=== PATIENT | female | born 1995 | race Two or more races ===

== ENCOUNTER 2020-10-09 19:05 | Emergency (ER) | payer OTHER ==
[~2020-10-09] VITALS: Ht 162.6 cm; Wt 58.3 kg
[2020-10-09 19:38] VITALS: BP 111/67
--- NOTE | 2020-10-09 19:41 | PHYS DOC ---
Adult General Chief Complaint Chief Complaint: ABDOMINAL PAIN HPI HPI Patient is a 25-year-old female patient with no significant medical history who presents to the ED today complaining of nausea with no vomiting as well as left lower quadrant abdominal pain rated as mild and intermittent, symptoms began a couple of weeks. She also states she is constipated. Denies anything specifically exacerbating or relieving her symptoms. Describes the pain on the left lower quadrant sharp. She is also stating she does not know if she is or not, her last menstrual cycle was the beginning of August. She is 10 days late. (LYNDON BERNARD APRN) Review of Systems Review of Systems Constitutional: Denies fever or chills [] Eyes: Denies change in visual acuity, redness, or eye pain [] HENT: Denies nasal congestion or sore throat [] Respiratory: Denies cough or shortness of breath [] Cardiovascular: No additional information not addressed in HPI [] GI: Reports left lower quadrant abdominal pain, nausea, denies vomiting, bloody stools or diarrhea [] : Denies dysuria or hematuria [] Musculoskeletal: Denies back pain or joint pain [] Integument: Denies rash or skin lesions [] Neurologic: Denies headache, focal weakness or sensory changes [] All other systems were reviewed and found to be within normal limits, except as documented in this note. (LYNDON BERNARD APRN) Allergies Allergies Allergies Coded Allergies Type Severity Reaction Last Updated Verified No Known Drug Allergies 10/09/20 No (LYNDON BERNARD APRN) Physical Exam Physical Exam Constitutional: Well developed, well nourished, no acute distress, non-toxic appearance. [] HENT: Normocephalic, atraumatic, bilateral external ears normal, oropharynx moist, no oral exudates, nose normal. [] Eyes: PERRLA, EOMI, conjunctiva normal, no discharge. [] Neck: Normal range of motion, no tenderness, supple, no stridor. [] Cardiovascular:Heart rate regular rhythm, no murmur [] Lungs & Thorax: Bilateral breath sounds clear to auscultation [] Abdomen: Bowel sounds normal, soft, no tenderness, no masses, no pulsatile masses. [] Skin: Warm, dry, no erythema, no rash. [] Back: No tenderness, no CVA tenderness. [] Extremities: No tenderness, no cyanosis, no clubbing, ROM intact, no edema. [] Neurologic: Alert and oriented X 3, normal motor function, normal sensory function, no focal deficits noted. [] Psychologic: Affect normal, judgement normal, mood normal. [] (LYNDON BERNARD APRN) EKG EKG [] (LYNDON BERNARD APRN) Radiology/Procedures Radiology/Procedures []PROCEDURE: ABDOMEN SUPINE & UPRIGHT Abdomen 2 views: Reason for examination: Abdominal pain and constipation. There is no gross organomegaly. Psoas muscles are symmetric. The bowel gas pattern is nonspecific with no apparent obstruction. There are calcifications in the left pelvis which probably represent phleboliths. No acute bony abnormality seen. IMPRESSION: Nonspecific nonobstructive bowel gas pattern. Electronically signed by: Elisabeth Larson MD (10/09/2020 9:11 PM) [facility] DICTATED AND SIGNED BY: ELISABETH LARSON MD DATE: 10/09/202108 CC: LYNDON BERNARD APRN; PCP,NO ~MTH0 0 (LYNDON BERNARD APRN) Heart Score Risk Factors: Risk Factors: DM, Current or recent (<one month) smoker, HTN, HLP, family history of CAD, obesity. Risk Scores: Risk Factors: DM, Current or recent (<one month) smoker, HTN, HLP, family history of CAD, obesity. (LYNDON BERNARD APRN) Course & Med Decision Making Course & Med Decision Making Pertinent Labs and Imaging studies reviewed. (See chart for details) This is a 25-year-old female patient presenting to the ED today complaining of left lower quadrant abdominal pain, nausea, symptoms for a couple weeks. Concerned she could be . She is also complaining of constipation. UA negative for any acute findings, negative urine hCG. Abdomen supine and upright x-rays are negative for any acute findings, significant constipation noted on the images as well as gas. Discharged with mag citrate. MiraLAX also recommended. We discussed about constipation management. (LYNDON BERNARD APRN) Dragon Disclaimer Dragon Disclaimer This electronic medical record was generated, in whole or in part, using a voice recognition dictation system. (LYNDON BERNARD APRN) Departure Departure: Impression: Primary Impression: Constipation Disposition: 01 DC HOME SELF CARE/HOMELESS Condition: STABLE Referrals: PCP,NO (PCP) follow up with your doctor in one week Patient Instructions: Constipation, Adult Additional Instructions: You were evaluated in the emergency room for abdominal pain and noted to be constipated. Please increase your dietary fiber intake as well as water intake. Take MiraLAX every day to prevent constipation. Take magnesium citrate anytime you are constipated. Scripts Polyethylene Glycol 3350 (MIRALAX) 17 Gm Powd.pack 1 PACKET PO DAILY for constipation for 2 Days, #2 PACKET 0 Refills dissolve in water Prov: LYNDON BERNARD APRN 10/09/20 Attending Signature Attending Signature I have participated in the care of this patient and I have reviewed and agree with all pertinent clinical information above including history, exam, and recommendations. (VALENTIN TUBBS MD) Dragon Disclaimer This chart was dictated in whole or in part using Voice Recognition software in a busy, high-work load, and often noisy Emergency Department environment. It may contain unintended and wholly unrecognized errors or omissions. (VALENTIN TUBBS MD) Problem Qualifiers Primary Impression: Constipation Constipation type: unspecified constipation type Qualified Codes: K59.00 - Constipation, unspecified LYNDON BERNARD APRN Oct 09, 2020 19:41 VALENTIN TUBBS MD Oct 10, 2020 19:40
[2020-10-09 20:05] LABS: BILIRUBIN,URINE NEG (NEG); CLARITY,URINE HAZY; COLOR,URINE YELLOW; GLUCOSE,URINE NEG (NEG); NITRITE,URINE NEG (NEG); RBC,URINE RARE /HPF (0-2); UROBILINOGEN,URINE 0.2 mg/dL (0.2 mg/dL); WBC,URINE RARE /HPF (0-4)
[2020-10-09 20:06] LABS: BACTERIA,URINE 0 /HPF (0-FEW); SQUAMOUS EPITHELIAL CELL,UR FEW /LPF
--- NOTE | 2020-10-09 21:14 | RAD ---
Abdomen 2 views: Reason for examination: Abdominal pain and constipation. There is no gross organomegaly. Psoas muscles are symmetric. The bowel gas pattern is nonspecific wit h no apparent obstruction. There are calcifications in the left pelvis which probably represent phleb oliths. No acute bony abnormality seen. IMPRESSION: Nonspecific nonobstructive bowel gas pattern. Electronically signed by: Elisabeth Evans MD (10/09/2020 9:11 PM) [facility]
[2020-10-09] MEDS ORDERED: POLY17PO5 PO (21:29)
== END 2020-10-09 21:35 | disposition home or self-care (01) ==
LOC: ER 19:05
DX: K59.00 Constipation, unspecified (principal)
CPT/HCPCS: 74019; 81001; 81025; 99284

== ENCOUNTER 2021-05-11 15:06 | Emergency (ER) | payer OTHER ==
[~2021-05-11] VITALS: Ht 160 cm; Wt 67.0 kg
[~2021-05-11 15:06] MED LIST: POLY17PO5 PO
[2021-05-11 15:39] VITALS: BP 130/76
--- NOTE | 2021-05-11 15:48 | PHYS DOC ---
Past History Past Medical History: No Pertinent History Past Surgical History: No Surgical History Alcohol Use: None General Adult EDM: Chief Complaint: VAGINAL PROBLEM HPI: HPI: Patient is a 26-year-old female who presents to the ER today for swelling noted inside the vagina. Patient reports that it started out as a purple discoloration to her labia 1 week ago and now she has swelling inside her vagina. Patient reports heavy lifting at work. She denies trauma, pain, vaginal discharge, itching, abdominal pain, fevers, urinary complaints. She has never had any children. She does not have CORRECTIONS CASEWORKER. Review of Systems: Review of Systems: 14 body systems of the review of systems have been reviewed. See HPI for pertinent positive and negative responses, otherwise all other systems are negative, nonpertinent or noncontributory Allergies: Allergies: Allergies Coded Allergies Type Severity Reaction Last Updated Verified No Known Drug Allergies 05/11/21 No Physical Exam: PE: Constitutional: Well developed, well nourished, no acute distress, non-toxic appearance. [] HENT: Normocephalic, atraumatic Eyes: PERRL, conjunctiva normal, no discharge. [] Neck: Normal range of motion, no stridor Cardiovascular:Heart rate regular rhythm, no murmur [] Lungs & Thorax: Bilateral breath sounds clear to auscultation [] Abdomen: Bowel sounds normal, soft, no tenderness, no masses, no pulsatile masses. [] Skin: Warm, dry, no erythema, no rash. [] Back: No tenderness, no CVA tenderness. [] Extremities: No tenderness, no cyanosis, no clubbing, ROM intact, no edema. [] Neurologic: Alert and oriented X 3, normal motor function, normal sensory funct ion, no focal deficits noted. [] Psychologic: Affect normal, judgement normal, mood normal. [] Supervisor Customer Records Division: Pelvic exam: Outer genitalia normal-appearing, patient had a small amount of white thin vaginal discharge. Patient had no erythema, lesions noted. No CMT tenderness, no adnexal tenderness. There is mild swelling noted to the top of the vaginal opening, this is the same region where patient noticed ecchymosis to. It is likely that patient had trauma to area and has a small amount of sw elling from that trauma. Patient has no concerns for STDs she is sexually active with her only. GC chlamydia and wet prep swabs obtained. Current Patient Data: Vital Signs: Vital Signs Date Time Temp Pulse Resp B/P (MAP) Pulse Ox O2 Delivery O2 Flow Rate FiO2 05/11/21 15:39 99.4 92 18 130/76 98 Room Air EKG: EKG: [] Radiology/Procedures: Radiology/Procedures: [] Heart Score: C/O Chest Pain: No Risk Factors: Risk Factors: DM, Current or recent (<one month) smoker, HTN, HLP, family history of CAD, obesity. Risk Scores: Score 0 - 3: 2.5% MACE over next 6 weeks - Discharge Home Score 4 - 6: 20.3% MACE over next 6 weeks - Admit for Clinical Observation Score 7 - 10: 72.7% MACE over next 6 weeks - Early Invasive Strategies Course & Med Decision Making: Course & Med Decision Making Pertinent Labs and Imaging studies reviewed. (See chart for details) Patient is a 26 old female being seen in the ER today for swelling noted inside her vagina. I performed a pelvic exam that was unremarkable, there is a small amount of swelling noted to the top of the vaginal opening where patient previously had ecchymosis. It is likely that patient had vaginal trauma that she is unaware of. Patient is sexually active with one partner with no concerns for STDs. Swabs were obtained for STI testing. A UA and test was performed in the ER. All testing in the ER was unremarkable. Patient has STI testing pending and will be notified of those results whenever they become available. I discussed with patient all findings and diagnostic testing as well as the need to follow-up with PCP for further evaluation and treatment or return to the ER if any new or worsening symptoms. Strict return precautions were also discussed at length. Patient voiced understanding and agreement with the plan. Patient is hemodynamically stable at the time of disposition. Dragon Disclaimer: Dragon Disclaimer: This electronic medical record was generated, in whole or in part, using a voice recognition dictation system. Departure Departure: Impression: Primary Impression: Swelling of vagina Disposition: HOME / SELF CARE / HOMELESS Condition: GOOD Referrals: PCP,NO (PCP) Patient Instructions: Pelvic Exam Additional Instructions: You were seen in the ER today for vaginal swelling. We tested you for a urinary tract infection and bacterial infection/STIs in the ER. You do not have a urinary tract infection or a bacterial infection of your vagina. Your STI testing will be resulted in 2 days and we will call you with those results. Please abstain from sexual intercourse until the results of the STI testing. Yo ur pelvic exam was unremarkable. If you continue to have symptoms I follow-up with an CORRECTIONS CASEWORKER. Please return to the ER if you have any new or worsening concerns. EMERGENCY DEPARTMENT GENERAL DISCHARGE INSTRUCTIONS Thank you for coming to [facility] (ED) today and trusting us with you care. We trust that you had a positivie experience in our Emergency Department. If you wish to speak to the department management, you may call the director at [phone]. YOUR FOLLOW UP INSTRUCTIONS ARE FOLLOWS: 1. Do you have a private Doctor? If you do not have a private doctor, please ask for a resource list of physicians or clinics that may be able to assist you with follow up care. 2. The Emergency Physician has interpreted your x-rays. The X-Ray specialist will also review them. If there is a change in the findings, you will be notified in 48 hours when at all possible. 3. A lab test or culture has been done, your results will be reviewed and you will be notified if you need a change in treatment. ADDITIONAL INSTRUCTIONS AND INFORMATION: 1. Your care today has been supervised by a physician who is specially trained in emergency care. Many problems require more than one evaluation for a complete diagnosis and treatment. We recommend that you schedule your follow up appointment as recommended to ensure complete treatment of you illness or injury. If you are unable to obtain follow up care and continue to have a problem, or if your condition worsens, we recommend that you return to the ED. 2. We are not able to safely determine your condition over the phone nor are we able to give sound medical advice over the phone. For these safety reasons, if you call for medical advice we will ask you to come to the ED for further evaluation. 3. If you have any questions regarding these discharge instructions please call the ED at [phone]. SAFETY INFORMATION: In the interest of safety, wellness, and injury prevention; we encourage you to wear your sealbelt, if you smoke; quite smoking, and we encourage family to use a protective helmet for bicycling and other sporting events that present an increased risk for head injury. IF YOUR SYMPTOMS WORSEN OR NEW SYMPTOMS DEVELOP, OR YOU HAVE CONCERNS ABOUT YOUR CONDITION; OR IF YOUR CONDITION WORSENS WHILE YOU ARE WAITING FOR YOUR FOLLOW UP APPOINTMENT; EITHER CONTACT YOUR PRIMARY CARE DOCTOR, THE PHYSICIAN WHOSE NAME AND NUMBER YOU WERE GIVEN, OR RETURN TO THE ED IMMEDIATELY. JONAH ALEXANDER PHOTO BOOTH OPERATOR May 11, 2021 15:48
[2021-05-11 16:39] LABS: BILIRUBIN,URINE NEG (NEG); CLARITY,URINE CLEAR; COLOR,URINE YELLOW; GLUCOSE,URINE NEG (NEG); UROBILINOGEN,URINE 0.2 mg/dL (0.2 mg/dL)
[2021-05-11 16:40] LABS: NITRITE,URINE NEG (NEG)
[2021-05-11 16:42] LABS: BACTERIA,URINE 0 /HPF (0-FEW); SQUAMOUS EPITHELIAL CELL,UR FEW /LPF
[2021-05-12 23:06] LABS: CHLAMYDIA PROBE Negative (Negative)
== END 2021-05-11 17:28 | disposition home or self-care (01) ==
LOC: ER 15:06
DX: N89.8 Other specified noninflammatory disorders of vagina (principal)
CPT/HCPCS: 81001; 81025; 87491; 87591; 99284; Q0111